=== PATIENT | male | born 1995 | race Caucasian/White ===

== ENCOUNTER 2016-09-17 17:08 | Emergency (ER) | payer OTHER ==
[~2016-09-17] VITALS: Ht 170.2 cm; Wt 86.0 kg
[2016-09-17 17:19] VITALS: Ht 170.2 cm; Wt 86.0 kg
[2016-09-17] MEDS ORDERED: IBUPROFEN 600 MG TAB PO ONE (18:00)
--- NOTE | 2016-09-17 18:14 | RADRPT ---
PROCEDURE: XR left forearm. CLINICAL INDICATION: Pain. TECHNIQUE: AP and lateral views of the forearm were obtained. COMPARISON: No prior studies are available for comparison. FINDINGS: There is normal mineralization and alignment. No fracture or osseous lesion is identified. The joint s are unremarkable. The soft tissues are unremarkable. IMPRESSION: Unremarkable examination. RPTAT: HGDB .Jose Alejandro Denis MD, MD Date Time Electronically viewed and signed by .Jose Alejandro Denis MD, on 09/17/2016 18:14 .B/
[2016-09-17] MEDS ORDERED: IBUP-1542 PO (18:34)
--- NOTE | 2016-09-18 00:56 | ERD ---
ER Documentation Chief Complaint Date/Time DATE: 09/18/16 TIME: 00:50 Chief Complaint WORK RELTD SLIP FELL, BACK AND LEFT ARM PAIN, HEADACHE THIS AM HPI 20-year-old male complaining of left back pain and left arm pain. Patient stated that he slipped and fell at work, landed on his left arm and left side. His back pain is worse with movement. He denies hitting his head in the fall. Denies headache at this time. Denies nausea or vomiting after the fall. This is a work-related injury. ROS All systems reviewed and are negative except as per history of present illness. Medications Home Meds Active Scripts Ibuprofen* (Motrin*) 600 Mg Tab, 600 MG PO Q6H Y for PAIN AND OR ELEVATED TEMP, #30 TAB Prov:DIMA PEDRAZA. LICENSED SURVEYOR 09/17/16 Allergies Allergies: Coded Allergies: No Known Drug Allergies (Verified Allergy, Unknown, 09/17/16) PMhx/Soc Medical and Surgical Hx: pt denies Medical Hx, pt denies Surgical Hx Physical Exam Vitals Vital Signs Date Time Temp Pulse Resp B/P Pulse Ox O2 Delivery O2 Flow Rate FiO2 09/17/16 17:19 98.0 74 16 145/77 100 Physical Exam General: Patient is well-developed. Awake, alert, and conversant, in no apparent distress Skin: Warm and dry Head: Normocephalic, atraumatic without palpable deformities Eyes: Pupils equal, round, and reactive to light. Extraocular movements intact. No periorbital ecchymosis or step-off Neck: No midline point tenderness, step-off, or deformity to firm palpation of posterior cervical spine. Trachea midline. Carotids equal. No masses. No JVD. Full range of motion of the neck without limitation or pain Chest: No surface trauma. Nontender without crepitus or deformity. No palpable subcutaneous air. Lungs have good tidal volume, lungs clear to auscultate bilaterally Heart: Regular rate and rhythm. No murmur, rub, or gallop Back: No contusions, ecchymosis, or abrasions are noted. Nontender without step-off or deformity to firm midline palpation. No CVA tenderness or flank ecchymosis. Muscle spasm noted on the left lumbar region. Extremities: 2 cm x 4 cm ecchymosis noted on the medial left forearm. Full range of motion without limitation or pain. Good strength in all extremities. Sensation to light touch intact. All peripheral pulses are intact and equal. Gait is normal. Neuro: Alert and oriented 4, GCS 15, cranial nerves II through XII intact. Motor and sensory exam is nonfocal. Reflexes are symmetric Results 24 hrs Current Medications Medications (Trade) Dose Ordered Sig/Jean [place] Route PRN Reason Start Time Stop Time Status Last Admin Dose Admin Ibuprofen (Motrin) 600 mg ONCE ONCE PO 09/17/16 18:00 09/17/16 18:01 DC 09/17/16 17:53 PROCEDURE: XR left forearm. CLINICAL INDICATION: Pain. TECHNIQUE: AP and lateral views of the forearm were obtained. COMPARISON: No prior studies are available for comparison. FINDINGS: There is normal mineralization and alignment. No fracture or osseous lesion is identified. The joints are unremarkable. The soft tissues are unremarkable. IMPRESSION: Unremarkable examination. RPTAT: HGDB .Jose Alejandro Denis MD, MD Date Time Electronically viewed and signed by .Jose Alejandro Denis MD, on 09/17/2016 18:14 .B/ CC: DIMA PEDRAZA. LICENSED SURVEYOR Procedures/MDM Well-appearing 20-year-old male present ED was left forearm pain and left lower back pain after falling today. He is noted to have a muscle spasm in the left lumbar region and the ecchymosis on the left forearm. He does not have any midline spine tenderness, I doubt spinal fracture subluxation, or disc herniation. Patient has full range of motion and normal strength on his left arm, I doubt fractures of the arm. However, patient request x-ray of the left arm. Left forearm x-rays negative for fractures or dislocations. Patient is given ibuprofen in the ED for pain. Patient appears well, stable for discharge and outpatient management. Medical decision making shared with patient and family. Education provided to patient and family. Patient and family expressed understanding of the plan. Medications on discharge: Ibuprofen. Follow-up: Worker's comp clinic in 2-3 days. Departure Diagnosis: Primary Impression: Back spasm Additional Impression: Forearm contusion Condition: Good Patient Instructions: Back Sprain/Strain, Contusion, Upper Extremity [facility] Usted se enciso hecho un examen mdico de control que le indica que no est en harsh condicin que requiera tratamiento urgente en el Departamento de Emergencia. Un estudio ms profundo y el tratamiento de mar condicin pueden esperar sin ningn riesgo hasta que usted sea atendida/o en el consultorio de mar mdico o harsh cl cynthia. Es responsabilidad suya arreglar harsh gretchen para el seguimiento del armin. MANEJO DE CONDICIONES NO URGENTES EN EL FUTURO 1) Si usted tiene un mdico de atencin primaria: Usted debera llamar a mar mdico de atencin primaria antes de venir al departamento de emergencia. Despus de las horas de consultorio, mar doctor o mar asociado/a est disponible por telfono. El mdico o enfermero de yonatan en el servicio telefnico puede asesorarle por juan alberto medio para atender el problema, o armin contrario se puede programar harsh gretchen. 2) Si usted no tiene un mdico de atencin primaria: Llame al mdico o clnica de referencia que aparece abajo ivon las horas de consultorio para hacer harsh gretchen para que le vean. CLINICAS: [facility] [phone] [facility] [phone] [facility] [phone] [address] [facility]. [facility] [phone] [facility]. [facility] [phone] [address] [facility]. [phone] [address] Additional Instructions: Llame al doctor MAANA y giana harsh GRETCHEN PARA DENTRO DE 2-3 PARTIDA.Dgale a la secretaria que nosotros le instruimos hacer esta gretchen.Avise o llame si mar condicin se empeora antes de la gretchen. Regresa aqui si peor o no mejor. DIMA PEDRAZA. CAMRYN Sep 18, 2016 00:56
== END 2016-09-17 18:58 | disposition home or self-care (01) ==
LOC: FTE 17:08
DX: S39.92XA Unspecified injury of lower back, initial encounter (principal); S50.12XA Contusion of left forearm, initial encounter; W01.0XXA Fall on same level from slipping, tripping and stumbling without subsequent striking against object, initial encounter; Y92.89 Other specified places as the place of occurrence of the external cause
CPT/HCPCS: 73090